=== PATIENT | male | born 1960 | race Caucasian/White ===

== ENCOUNTER 2017-10-06 14:54 | Observation (INO) | payer OTHER ==
[~2017-10-06] VITALS: Ht 180.3 cm; Wt 96.1 kg
[~2017-10-06 14:54] MED LIST: CITA10TA8 PO; ESCI20TA10 PO; LAMO25TA52 PO; LOSA100T6 PO; LOSA25TA5 PO
[2017-10-06 16:10] LABS: BASOPHILS # (AUTO) 0.02 x10^3/uL (0-0.1); BASOPHILS % (AUTO) 0 % (0-1); EOSINOPHILS # (AUTO) 0.13 x10^3/uL (0-0.4); EOSINOPHILS % (AUTO) 2 % (1-7); LYMPHOCYTES # (AUTO) 1.88 x10^3/uL (1-3.4); LYMPHOCYTES % (AUTO) 24 % (22-44); MD NO; MEAN CORPUSCULAR HEMOGLOBIN 31.7 pg (27.5-34.5); MEAN CORPUSCULAR HGB CONC 34.1 g/dL (33.2-36.2); MEAN CORPUSCULAR VOLUME 93.1 fL (81-97); MEAN PLATELET VOLUME 9.3 fL (7.4-10.4); MONOCYTES # (AUTO) 0.62 x10^3/uL (0.2-0.8); MONOCYTES % (AUTO) 8 % (2-9); NEUTROPHILS # (AUTO) 5.25 x10^3/uL (1.8-6.8); NEUTROPHILS % (AUTO) 67 % (42-75); PLATELET COUNT 234 x10^3/uL (130-400); RED BLOOD COUNT 5.22 x10^6/uL (4.38-5.82); RED CELL DISTRIBUTION WIDTH 12.3 % (9.4-14.8)
[2017-10-06 16:23] LABS: ALBUMIN 3.9 g/dL (3.4-5.0); CHLORIDE 104 mmol/L (98-107)
[2017-10-06 16:32] LABS: ANION GAP 7 mmol/L (5-15); CALCIUM 9.3 mg/dL (8.5-10.1)
[2017-10-06 16:34] LABS: SALICYLATE LEVEL < 1.7 mg/dL (2.8-20.0)
[2017-10-06 16:36] LABS: ACETAMINOPHEN < 2 mcg/mL (10-30)
[2017-10-06 17:34] LABS: AMPHETAMINE SCREEN, URINE Negative (Negative); BARBITURATE SCREEN, URINE Negative (Negative); BENZODIAZEPINE SCREEN, URINE Negative (Negative); CANNABINOID SCREEN, URINE Negative (Negative); COCAINE SCREEN, URINE Negative (Negative); METHADONE SCREEN, URINE Negative (Negative); OPIATE SCREEN, URINE Negative (Negative)
[2017-10-06] MEDS ORDERED: ACETAMINOPHEN 325 MG TABLET PO PRN (23:00)
[2017-10-06] MEDS ORDERED: LORazepam 1MG TABLET PO PRN (23:00)
[2017-10-06] MEDS ORDERED: FLUOXETINE HCL 20 MG CAPSULE PO SCH (23:00)
[2017-10-06] MEDS ORDERED: OLANZAPINE 2.5 MG TABLET PO SCH (23:00)
[2017-10-06] MEDS ORDERED: POLYETHYLENE GLYCOL 17 GM PACKET PO PRN (23:00)
[2017-10-06] MEDS ORDERED: ONDANSETRON ODT 4 MG PO PRN (23:00)
[2017-10-06 23:59] VITALS: BP 123/83
[2017-10-07 08:00] VITALS: BP 124/82
[2017-10-07] MEDS ORDERED: LOSARTAN 50MG TABLET PO SCH (09:00)
== END 2017-10-07 11:14 ==
LOC: ED 18:55 → SUATTDRO 22:49 → EDIP 22:54 → 2N 23:30
PROVIDERS: ADMIT Hospitalist; ATTEND Hospitalist
DX: R45.851 Suicidal ideations (principal); F32.9 Major depressive disorder, single episode, unspecified; I10 Essential (primary) hypertension
CPT/HCPCS: 36415; 80048; 80307; 80329; 82040; 85025; 99285; G0378; G0480

== ENCOUNTER → 2018-07-09 | Outpatient (CLI) | payer OTHER ==
[~2018-07-09] MED LIST changes: +LOSA100T14 PO; -LOSA100T6 PO; +LOSA25TA25 PO; -LOSA25TA5 PO; +OMNIPAQUE 350 MG/ML, 75ML BOTTLE ONE
== END | disposition home or self-care (01) ==
LOC: CFH 08:54
PROVIDERS: ATTEND Family Medicine
DX: J84.10 Pulmonary fibrosis, unspecified (principal); R91.8 Other nonspecific abnormal finding of lung field; D71 Functional disorders of polymorphonuclear neutrophils
CPT/HCPCS: 36415; 71260; 80047; Q9967

== ENCOUNTER 2018-11-23 09:55 | Outpatient (CLI) | payer OTHER ==
[~2018-11-23 09:55] MED LIST changes: -OMNIPAQUE 350 MG/ML, 75ML BOTTLE ONE
[2018-11-23] MEDS ORDERED: GADOBUTROL 10 MMOL/10 ML VIAL ONE (10:15)
== END 2018-11-23 23:59 | disposition home or self-care (01) ==
LOC: CFH 09:55
PROVIDERS: ATTEND Family Medicine
DX: R41.3 Other amnesia (principal)
CPT/HCPCS: 70553; A9585